=== PATIENT | female | born 1970 | race Asian ===

== ENCOUNTER → 2021-04-18 | Outpatient (CLI) | payer OTHER ==
--- NOTE | 2021-04-18 11:12 | RAD ---
Examination: MRI of the right ankle without contrast HISTORY: History of right heel, foot pain COMPARISON: None TECHNIQUE: Multiplanar, multisequence MR imaging of the right ankle performed without contrast FINDINGS: The attachment of the Achilles tendon to the calcaneus grossly appears intact intact. There is modera te increased T2 signal identified in the plantar fascia at its attachment to the inferior calcaneus m edially likely plantar fasciitis. Small ankle joint effusion. Examination is very limited due to sign ificant motion artifact. The attachment of the peroneal tendons grossly appears intact. The ligament and the other tendons cannot be evaluated given significant motion artifact IMPRESSION: 1. Moderate increased T2 signal identified in the plantar fascia at its attachment to the inferior c alcaneus medially likely plantar fasciitis. 2. Small ankle joint effusion. 3. Limited examination due to significant motion artifact. Electronically signed by: David Allison MD (04/18/2021 11:10 AM) [id number]
== END ==
LOC: MRI 09:09
PROVIDERS: ATTEND Orthopaedic Surgery
DX: M25.471 Effusion, right ankle (principal); M79.671 Pain in right foot
CPT/HCPCS: 73718